=== PATIENT | female | born 1990 | race Hispanic/Latino ===

== ENCOUNTER 2021-09-01 16:55 | Emergency (ER) | payer MEDICAID ==
[~2021-09-01] VITALS: Ht 152.4 cm; Wt 59.0 kg
[~2021-09-01 16:55] MED LIST: ACET-2247 PO; IBUP-2070 PO; IRON-6 PO; PREN1TAB80 PO
[2021-09-01 16:58] VITALS: BP 123/75
[2021-09-01 17:56] LABS: BASOPHILS % (AUTO) 0.3 % (0.0-5.0); EOSINOPHILS % (AUTO) 0.8 % (0.0-8.0); HEMATOCRIT 36.5 % (36-48); LYMPHOCYTES % (AUTO) 14.9 % (21.0-51.0); MEAN CORPUSCULAR HEMOGLOBIN 24.9 pg (27.0-33.0); MEAN CORPUSCULAR HGB CONC 31.8 g/dL (32.0-36.0); MEAN CORPUSCULAR VOLUME 78.3 fL (79-99); MONOCYTES % (AUTO) 5.4 % (3.0-13.0); NEUTROPHILS % (AUTO) 78.1 % (40.0-77.0); PLATELET COUNT (AUTO) 241 K/uL (130-400); RED BLOOD CELL COUNT(AUTO) 4.66 MIL/uL (4.00-5.50); RED CELL DISTRIBUTION WIDTH 14.6 % (11.0-15.5); WHITE BLOOD COUNT (AUTO) 7.8 K/uL (4.8-10.8)
[2021-09-01 17:57] LABS: APPEARANCE,URINE Clear (CLEAR); BILIRUBIN,URINE Negative (NEGATIVE); COLOR,URINE Yellow (YELLOW); GLUCOSE, URINE (UA) Negative (NEGATIVE); KETONES,URINE Negative (NEGATIVE); LEUKOCYTE ESTERASE ,URINE Trace (NEGATIVE); NITRATE,URINE Negative (NEGATIVE); OCCULT BLOOD,URINE Negative (NEGATIVE); PROTEIN,URINE Negative (NEGATIVE); UROBILINOGEN,URINE 0.2 mg/dL (0.2-1.0)
[2021-09-01 18:03] LABS: HCG,QUAL RESULT POSITIVE (NEGATIVE)
[2021-09-01 18:05] LABS: BACTERIA,URINE Few /HPF (None Seen); RBC,URINE 0-1 /HPF (0-1); SQUAMOUS EPITHELIAL CELL,UR Few /HPF (0-2)
[2021-09-01 18:07] LABS: CREATININE 0.5 mg/dL (0.5-1.5); POTASSIUM 3.5 mmol/L (3.5-5.1)
[2021-09-01 18:12] LABS: ALBUMIN 3.5 g/dL (3.5-5.0); BILIRUBIN,TOTAL 0.1 mg/dL (0.2-1.0); TOTAL PROTEIN, SERUM 7.9 g/dL (6.0-8.3)
[2021-09-01] MEDS ORDERED: CEPH500B PO (19:57)
== END 2021-09-01 20:05 | disposition home or self-care (01) ==
LOC: EDH 16:55
DX: O20.0 Threatened abortion (principal); O23.42 Unspecified infection of urinary tract in pregnancy, second trimester; Z3A.19 19 weeks gestation of pregnancy; Z79.1 Long term (current) use of non-steroidal anti-inflammatories (NSAID)
CPT/HCPCS: 36415; 76805; 80053; 81001; 81025; 84702; 85025; 87088

== ENCOUNTER 2021-11-12 19:15 | Observation (INO) | payer MEDICAID ==
[~2021-11-12] VITALS: Ht 157.5 cm; Wt 67.6 kg
[~2021-11-12 19:15] MED LIST changes: +CEPH500B PO
[2021-11-12 19:19] VITALS: BP 114/58
[2021-11-12 19:46] LABS: APPEARANCE,URINE Cloudy (CLEAR); BILIRUBIN,URINE Negative (NEGATIVE); COLOR,URINE Yellow (YELLOW); GLUCOSE, URINE (UA) Negative (NEGATIVE); KETONES,URINE Negative (NEGATIVE); LEUKOCYTE ESTERASE ,URINE Large (NEGATIVE); NITRATE,URINE Negative (NEGATIVE); OCCULT BLOOD,URINE Negative (NEGATIVE); PH,URINE 7.5 (5.0-8.0); PROTEIN,URINE Negative (NEGATIVE); UROBILINOGEN,URINE 0.2 mg/dL (0.2-1.0)
[2021-11-12 20:15] LABS: BACTERIA,URINE Moderate /HPF (None Seen); MUCUS,URINE Few LPF (None Seen); SQUAMOUS EPITHELIAL CELL,UR Moderate /HPF (0-2)
[2021-11-12] MEDS ORDERED: LACTATED RINGERS 1000ML IV PRN (20:30)
[2021-11-12 20:37] LABS: AMPHET/METH SCREEN,URINE NEGATIVE (NEGATIVE); BARBITURATE SCREEN, URINE NEGATIVE (NEGATIVE); BENZODIAZEPINES SCREEN,URINE NEGATIVE (NEGATIVE); CANNABINOID SCREEN,URINE NEGATIVE (NEGATIVE); COCAINE SCREEN,URINE NEGATIVE (NEGATIVE); OPIATE SCREEN,URINE NEGATIVE (NEGATIVE); PHENCYCLIDINE SCREEN,URINE NEGATIVE (NEGATIVE)
== END 2021-11-12 22:15 | disposition home or self-care (01) ==
LOC: EDH 19:15 → LDH 19:16
PROVIDERS: ADMIT Obstetrics & Gynecology; ATTEND Obstetrics & Gynecology
DX: O26.893 Other specified pregnancy related conditions, third trimester (principal); R10.2 Pelvic and perineal pain; R60.0 Localized edema; O99.891 Other specified diseases and conditions complicating pregnancy; M54.50 Low back pain, unspecified; O34.63 Maternal care for abnormality of vagina, third trimester; N89.8 Other specified noninflammatory disorders of vagina; Z3A.30 30 weeks gestation of pregnancy
CPT/HCPCS: 80305; 81001; 87088; 96360; G0378 ×3; G0379

== ENCOUNTER 2021-11-29 00:51 | Observation (INO) | payer MEDICAID ==
[~2021-11-29] VITALS: Ht 157.5 cm; Wt 68.0 kg
[2021-11-29] MEDS ORDERED: LACTATED RINGERS 1000ML IV PRN (01:30)
[2021-11-29 01:33] LABS: APPEARANCE,URINE CLEAR (CLEAR); BILIRUBIN,URINE NEGATIVE (NEGATIVE); COLOR,URINE YELLOW (YELLOW); GLUCOSE, URINE (UA) NEGATIVE (NEGATIVE); KETONES,URINE NEGATIVE (NEGATIVE); LEUKOCYTE ESTERASE ,URINE TRACE (NEGATIVE); NITRATE,URINE NEGATIVE (NEGATIVE); OCCULT BLOOD,URINE NEGATIVE (NEGATIVE); PROTEIN,URINE NEGATIVE (NEGATIVE); UROBILINOGEN,URINE 0.2 mg/dL (0.2-1.0)
[2021-11-29 01:40] LABS: BACTERIA,URINE None Seen /HPF (None Seen); RBC,URINE None Seen /HPF (0-1); SQUAMOUS EPITHELIAL CELL,UR Moderate /HPF (0-2); WBC,URINE 0-1 /HPF (0-1)
[2021-11-29 01:41] LABS: AMPHET/METH SCREEN,URINE NEGATIVE (NEGATIVE); BARBITURATE SCREEN, URINE NEGATIVE (NEGATIVE); BENZODIAZEPINES SCREEN,URINE NEGATIVE (NEGATIVE); CANNABINOID SCREEN,URINE NEGATIVE (NEGATIVE); COCAINE SCREEN,URINE NEGATIVE (NEGATIVE); OPIATE SCREEN,URINE NEGATIVE (NEGATIVE); PHENCYCLIDINE SCREEN,URINE NEGATIVE (NEGATIVE)
[2021-11-29] MEDS ORDERED: LACTATED RINGERS 1000ML 1,000 ML IV SCH (03:00)
[2021-11-29] MEDS ORDERED: TERBUTALINE SULFATE PO SCH (03:00)
[2021-11-29] MEDS ORDERED: PROMETHAZINE HCL 25 MG/ML 1ML AMPULE IM ONE (03:00)
[2021-11-29] MEDS: TERBUTALINE SULFATE VIAL 1MG/ML SQ SCH ×2 (03:06→03:30)
[2021-11-29 03:09] VITALS: BP 107/62
== END 2021-11-29 04:55 | disposition home or self-care (01) ==
LOC: EDH 00:51 → LDH 00:52
PROVIDERS: ADMIT Obstetrics & Gynecology; ATTEND Obstetrics & Gynecology
DX: O60.03 Preterm labor without delivery, third trimester (principal); O26.893 Other specified pregnancy related conditions, third trimester; R51.9 Headache, unspecified; O21.2 Late vomiting of pregnancy; Z3A.32 32 weeks gestation of pregnancy
CPT/HCPCS: 80305; 81001; 96360; 96361; 96372; G0378 ×4; G0379; J2550; J3105; J7120

== ENCOUNTER 2022-01-12 20:26 | Observation (INO) | payer MEDICAID ==
[2022-01-12 20:29] VITALS: BP 121/76
[2022-01-12 21:07] LABS: APPEARANCE,URINE SL CLOUDY (CLEAR); BILIRUBIN,URINE NEGATIVE (NEGATIVE); COLOR,URINE YELLOW (YELLOW); GLUCOSE, URINE (UA) NEGATIVE (NEGATIVE); KETONES,URINE NEGATIVE (NEGATIVE); LEUKOCYTE ESTERASE ,URINE SMALL (NEGATIVE); NITRATE,URINE NEGATIVE (NEGATIVE); OCCULT BLOOD,URINE NEGATIVE (NEGATIVE); PH,URINE 5.5 (5.0-8.0); PROTEIN,URINE NEGATIVE (NEGATIVE); UROBILINOGEN,URINE 0.2 mg/dL (0.2-1.0)
[2022-01-12 21:35] LABS: BACTERIA,URINE Few /HPF (None Seen); MUCUS,URINE Few LPF (None Seen); SQUAMOUS EPITHELIAL CELL,UR Moderate /HPF (0-2)
[2022-01-14] MEDS ORDERED: PREN1TAB26 PO (22:25)
[2022-01-14] MEDS ORDERED: FERR-82 PO (22:25)
[2022-01-16] MEDS ORDERED: DOCU-116 PO (11:04)
[2022-01-16] MEDS ORDERED: IBUP-2077 PO (11:04)
== END 2022-01-12 22:20 | disposition home or self-care (01) ==
LOC: EDH 20:26 → LDH 20:27
PROVIDERS: ADMIT Obstetrics & Gynecology; ATTEND Obstetrics & Gynecology
DX: O26.893 Other specified pregnancy related conditions, third trimester (principal); R10.9 Unspecified abdominal pain; O99.891 Other specified diseases and conditions complicating pregnancy; M54.9 Dorsalgia, unspecified; Z3A.38 38 weeks gestation of pregnancy
CPT/HCPCS: 81001; G0378 ×2; G0379

== ENCOUNTER 2022-01-31 15:58 | Emergency (ER) | payer MEDICAID ==
[~2022-01-31] VITALS: Ht 157.5 cm; Wt 62.8 kg
[~2022-01-31 15:58] MED LIST changes: -ACET-2247 PO; -CEPH500B PO; +DOCU-116 PO; +FERR-82 PO; -IBUP-2070 PO; +IBUP-2077 PO; -IRON-6 PO; +PREN1TAB26 PO; -PREN1TAB80 PO
[2022-01-31 16:24] LABS: HEMATOCRIT 35.4 % (36-48); MEAN CORPUSCULAR HEMOGLOBIN 23.8 pg (27.0-33.0); MEAN CORPUSCULAR HGB CONC 31.4 g/dL (32.0-36.0); MEAN CORPUSCULAR VOLUME 75.8 fL (79-99); PLATELET COUNT (AUTO) 213 K/uL (130-400); RED BLOOD CELL COUNT(AUTO) 4.67 MIL/uL (4.00-5.50); RED CELL DISTRIBUTION WIDTH 18.6 % (11.0-15.5); WHITE BLOOD COUNT (AUTO) 8.2 K/uL (4.8-10.8)
[2022-01-31] MEDS: KETOROLAC 30MG VIAL (30MG/ML) IVP ONE (16:34)
[2022-01-31] MEDS: 0.9%NACL 1000ML 2,000 ML IV ONE (16:34)
[2022-01-31] MEDS: ACETAMINOPHEN 325 MG TAB PO ONE (16:35)
[2022-01-31 16:41] LABS: CREATININE 0.7 mg/dL (0.5-1.5); POTASSIUM 3.3 mmol/L (3.5-5.1)
[2022-01-31 16:41] LABS: APPEARANCE,URINE SL CLOUDY (CLEAR); BILIRUBIN,URINE SMALL (NEGATIVE); COLOR,URINE YELLOW (YELLOW); GLUCOSE, URINE (UA) NEGATIVE (NEGATIVE); KETONES,URINE 5 mg/dL (NEGATIVE); LEUKOCYTE ESTERASE ,URINE LARGE (NEGATIVE); NITRATE,URINE NEGATIVE (NEGATIVE); OCCULT BLOOD,URINE LARGE (NEGATIVE); PROTEIN,URINE 100 mg/dL (NEGATIVE); UROBILINOGEN,URINE 0.2 mg/dL (0.2-1.0)
[2022-01-31 16:45] LABS: ALBUMIN 3.4 g/dL (3.5-5.0); TOTAL PROTEIN, SERUM 7.7 g/dL (6.0-8.3)
[2022-01-31 16:56] LABS: BACTERIA,URINE Few /HPF (None Seen); MUCUS,URINE Few LPF (None Seen); SQUAMOUS EPITHELIAL CELL,UR Few /HPF (0-2); WBC,URINE 26-50 /HPF (0-1)
[2022-01-31] MEDS: CEFTRIAXONE 1G VIAL IVP ONE (17:18)
[2022-01-31 17:51] VITALS: BP 105/64
[2022-01-31] MEDS ORDERED: CEPH500B PO (18:04)
== END 2022-01-31 18:43 | disposition home or self-care (01) ==
LOC: EDH 15:58
DX: N10 Acute pyelonephritis (principal); E86.9 Volume depletion, unspecified; Z20.822 Contact with and (suspected) exposure to COVID-19; Z79.1 Long term (current) use of non-steroidal anti-inflammatories (NSAID)
CPT/HCPCS: 99284; 74176; 96374; 96361; 87635; 96375; 80053; 85027; 87040 ×2; 87077 ×2; 87088; 87186 ×2; 87804 ×2; 83605; 81001; 36415; C9803; J7030; J0696; J1885

== ENCOUNTER 2022-11-14 08:39 | Emergency (ER) | payer MEDICAID ==
[~2022-11-14] VITALS: Ht 157.5 cm; Wt 59.0 kg
[~2022-11-14 08:39] MED LIST changes: +CEPH500B PO
[2022-11-14 10:07] LABS: APPEARANCE,URINE CLEAR (CLEAR); BILIRUBIN,URINE NEGATIVE (NEGATIVE); COLOR,URINE YELLOW (YELLOW); GLUCOSE, URINE (UA) NEGATIVE (NEGATIVE); KETONES,URINE NEGATIVE (NEGATIVE); LEUKOCYTE ESTERASE ,URINE NEGATIVE Leu/uL (NEGATIVE); NITRATE,URINE NEGATIVE (NEGATIVE); PH,URINE 5.5 (5.0-8.0); PROTEIN,URINE 30 mg/dL (NEGATIVE); UROBILINOGEN,URINE 0.2 mg/dL (0.2-1.0)
[2022-11-14 10:08] LABS: HCG,QUALITATIVE URINE NEGATIVE (NEGATIVE)
[2022-11-14 10:46] LABS: MUCUS,URINE FEW LPF (None Seen); SQUAMOUS EPITHELIAL CELL,UR RARE /HPF (0-2)
[2022-11-14] MEDS ORDERED: 0.9%NACL 1000ML 1,000 ML IV ONE (11:30)
[2022-11-14] MEDS ORDERED: MORPHINE 4 MG SYG IVP ONE (11:30)
[2022-11-14] MEDS ORDERED: ONDANSETRON 4MG INJ IVP ONE (11:30)
[2022-11-14 12:05] LABS: BASOPHILS % (AUTO) 0.2 % (0.0-5.0); EOSINOPHILS % (AUTO) 0.1 % (0.0-8.0); HEMATOCRIT 41.1 % (36-48); LYMPHOCYTES % (AUTO) 4.2 % (21.0-51.0); MEAN CORPUSCULAR HEMOGLOBIN 25.9 pg (27.0-33.0); MEAN CORPUSCULAR HGB CONC 32.4 g/dL (32.0-36.0); MONOCYTES % (AUTO) 4.2 % (3.0-13.0); NEUTROPHILS % (AUTO) 91.1 % (40.0-77.0); PLATELET COUNT (AUTO) 206 K/uL (130-400); RED BLOOD CELL COUNT(AUTO) 5.14 MIL/uL (4.00-5.50); RED CELL DISTRIBUTION WIDTH 14.4 % (11.0-15.5); WHITE BLOOD COUNT (AUTO) 12.4 K/uL (4.8-10.8)
[2022-11-14 12:15] LABS: CREATININE 0.5 mg/dL (0.5-1.5); POTASSIUM 4.4 mmol/L (3.5-5.1)
[2022-11-14 12:21] LABS: ALBUMIN 4.4 g/dL (3.5-5.0); TOTAL PROTEIN, SERUM 8.3 g/dL (6.0-8.3)
[2022-11-14] MEDS ORDERED: IBUP-2077 PO (14:38)
[2022-11-14 15:45] VITALS: BP 132/74
[2022-11-14] MEDS ORDERED: LACTATED RINGERS 1000ML 1,000 ML IV SCH (19:30)
== END 2022-11-14 15:48 | disposition home or self-care (01) ==
LOC: EDH 08:39
DX: N83.201 Unspecified ovarian cyst, right side (principal); R10.2 Pelvic and perineal pain; Z20.822 Contact with and (suspected) exposure to COVID-19; Z79.899 Other long term (current) drug therapy; Z98.890 Other specified postprocedural states
CPT/HCPCS: 99285; 74176; 96374; 87635; 96361; 96375; 80053; 83690; 85025; 87880; 87804 ×2; 81001; 81025; 36415; C9803; J7120; J2405; J2270

== ENCOUNTER 2024-10-27 22:42 | Emergency (ER) | payer BC, MEDICAID ==
[~2024-10-27] VITALS: Ht 157.5 cm; Wt 61.2 kg
--- NOTE | 2024-10-27 22:57 | ERN ---
ED Note History of Present Illness Stated Complaint: RASH, ITCHING Chief Complaint: Allergic Reaction Time Seen by MD: 22:46 Time Seen by Midlevel: 22:50 Dictation: Ms. Ambriz is a 34-year-old female with no reported chronic health issues who presented to the emergency department this evening for evaluation of rash. She states that 24 hours ago she developed a rash with hives to extremities, trunk, neck, and scalp. She reports intense itching. She states it is something that happened three years ago but had responded at that time to Benadryl. She states she took Benadryl twice today and symptoms persist. She denies having fever, chills, shortness of breath, cough, chest pain, palpitations, edema, abdominal pain, nausea, vomiting, diarrhea, dysuria, headache, or dizziness. Voice is clear. No airway involvement. Allergies: Coded Allergies: No Known Allergies (Unverified Allergy, Unknown, 09/26/14) Home Meds Active Scripts Ibuprofen (Ibuprofen 800 mg Tab) 800 Mg Tab, 800 MG PO Q6H PRN for PAIN for 10 Days, #40 TAB Prov:PATIENCE PETER 11/14/22 Cephalexin Monohydrate (Keflex) 500 Mg Cap, 500 MG PO TID for 7 Days, #21 CAP 0 Refills Prov:ANGE STEIN MD 01/31/22 Reported Medications Ibuprofen (Ibuprofen 800 mg Tab) 800 Mg Tab, 800 MG PO Q8H PRN for PAIN, #60 TAB 01/16/22 Docusate Sodium (Colace) 100 Mg Capsule, 100 MG PO BID, #60 CAP 01/16/22 Ferrous Sulfate (Iron) 325 Mg Tablet, 325 MG PO DAILY, TAB 01/14/22 Vit/Iron Fumarate/FA ( Vitamins Tablet) 1 Each Tablet, 1 EACH PO DAILY, TAB 01/14/22 Past Medical History Past Medical History: No Pertinent History Surgical History: Other Surgical History Other: HERNIA Social History: Other : 2 Para: 2 Aborts: 0 RN Note Reviewed/Agreed w/PFSH: Yes Review of System Dictation REVIEW OF SYSTEMS: CONSTITUTIONAL: Patient denies fevers, chills, sweats and weight changes. EYES: Patient denies any visual symptoms. EARS, NOSE, AND THROAT: No difficulties with hearing. No symptoms of rhinitis or sore throat. CARDIOVASCULAR: Patient denies chest pains, palpitations, orthopnea and paroxysmal nocturnal dyspnea. RESPIRATORY: No dyspnea on exertion, no wheezing or cough. GI: No nausea, vomiting, diarrhea, constipation, abdominal pain, hematochezia or melena. : No urinary hesitancy or dribbling. No nocturia or urinary frequency. No abnormal urethral discharge. MUSCULOSKELETAL: No myalgias or arthralgias. NEUROLOGIC: No chronic headaches, no seizures. Patient denies numbness, tingling or weakness. PSYCHIATRIC: Patient denies problems with mood disturbance. No problems with anxiety. ENDOCRINE: No excessive urination or excessive thirst. DERMATOLOGIC: Reports intense itching with rash/hives onset 24 hours ago. Initial Vital Sign VS Vital Signs Date Time Temp Pulse Resp B/P (MAP) Pulse Ox O2 Delivery O2 Flow Rate FiO2 10/27/24 22:43 99.3 114 20 123/82 100 Room Air 10/27/24 22:54 0 21 Physical Exam Dictation Vital signs: Reviewed. Afebrile Constitutional: No acute distress. Non-toxic appearing. Head/Face: Normocephalic, atraumatic. No angioedema Eyes: Periorbital areas with no swelling, redness, or edema. Lids and lashes are normal. Conjunctival injection is absent. Sclera anicteric. Pupils equal, round, reactive to light. ENT: Pinnas intact and no signs of trauma or erythema. Ear canals clear and no discharge. TMs no erythema. No nasal discharge or bleeding noted. Oropharynx with no exudate, redness, swelling, masses, exudates, or evidence of obstruction. Uvula midline. Mucous membranes moist. There is no angioedema of the lips, tongue, or airway noted. Voice is clear. Neck: Trachea midline, no masses palpated, and no cervical lymphadenopathy. No swelling. Supple, full range of motion. Chest/Axilla: No tenderness, no crepitus, no paradoxical movement, no retractions. Cardiovascular: Regular rate, regular rhythm, no murmur, no gallops. Symmetric pulses. No peripheral edema. Respiratory: Respirations even and unlabored. Lung sounds clear; no wheezes, rales or rhonchi. Room air SpO2 98-100% Gastrointestinal: Inspection is normal. No distention is appreciated. Bowel s ounds are normal. No mass or organomegaly . There is no tenderness. No rebound. No rigidity. No voluntary or involuntary guarding. No White's sign. Neurological: Normal speech, gross motor function intact, gross sensory function intact. No focal weakness/Paresthesia. Musculoskeletal/Extremities: All extremities have full range of motion, no pain or tenderness on palpation. Symmetric pulses. Integumentary: Intact. Skin is normal color, warm and dry. Cap refill less than 2 seconds. Multiple raised, erythematous, well demarcated wheals on the trunk and extremities she has consistent with urticaria (hives). Lesions are blanchable and transient with no associated bruising, scaling or signs of infection. ED Course ED Course Orders Procedure Category Date Status Time Famotidine 20mg Tab PHA 10/27/24 Complete (Pepcid 20mg Tab) 23:00 Loratadine 10 Mg PHA 10/27/24 Complete (Loratadine 10 Mg) 23:00 Prednisone 20mg Tab PHA 10/27/24 Complete (Deltasone/Orasone 2 23:00 Current Medications Medications (Trade) Dose Ordered Sig/Helder Route PRN Reason Start Time Stop Time Status Last Admin Dose Admin Famotidine (Pepcid 20mg Tab) 20 mg ONCE ONCE PO 10/27/24 23:00 10/27/24 23:01 DC 10/27/24 23:07 Loratadine (LORATAdine 10 mg) 10 mg ONCE ONCE PO 10/27/24 23:00 10/27/24 23:01 DC 10/27/24 23:07 Prednisone (deltaSONE/ oraSONE 20MG TAB) 40 mg ONCE ONCE PO 10/27/24 23:00 10/27/24 23:01 DC 10/27/24 23:07 Vital Signs Date Time Temp Pulse Resp B/P (MAP) Pulse Ox O2 Delivery O2 Flow Rate FiO2 10/27/24 22:54 99.0 108 19 107/63 100 Room Air* 0 21 10/27/24 22:43 99.3 114 20 123/82 100 Room Air Uneventful ED course. Vital signs stable; afebrile and normotensive with room air SpO2 100%. No angioedema. No airway involvement. Urticaria rash to body. She received doses prednisone, loratadine, and Pepcid. Symptoms resolving somewhat. Findings were discussed with patient and all questions were answered. Medical Decision Making MDM MDM: Differential diagnosis: Urticaria, anaphylaxis, cellulitis Rationale: Tests considered and ordered secondary to shared decision making include: Examination Previous outside records reviewed: Old ER visits. Risk of complication and/or morbidity or mortality of patient management: None Medications-Per medication reconciliation Need for hospitalization: Patient does not meet criteria for hospitalization. Need for emergency major/minor surgery: No There are no social concerns with this patient. Prescription drug management: Pepcid, prednisone, loratadine Prescriptions will include symptomatic care Patient's prior external medical records from other ER visits were reviewed by me as indicated. Prior testing and results from previous visits were reviewed. Prior tests were taken into account with medical decision making and resource utilization, independent historian/historians were used to obtain complete medical history. I independently interpreted the test that were performed, results were reviewed by me and considered findings on radiology if ordered. Medical management and examination interpretation discussions were had by me with other qualified healthcare professionals as indicated for the patient's care. DX & DISP Disposition: Discharge Departure Impression: Primary Impression: Urticaria Condition: Stable Scripts Famotidine (Famotidine) 20 Mg Tablet 1 TAB PO BID for 7 Days, #14 TAB 0 Refills Prov: PAULINE AC NP 10/27/24 Prednisone (Prednisone) 5 Mg Tablet 40 MG PO DAILY, #3 TAB 0 Refills Prov: PAULINE AC NP 10/27/24 Loratadine (Loratadine) 10 Mg Tablet 10 MG PO DAILY, #12 TAB 0 Refills Prov: PAULINE AC NP 10/27/24 Additional Instructions: Continue Pepcid, famotidine, and prednisone as directed. Avoid hot showers, tight clothing or known allergy triggers. Apply cool compresses or take a lukewarm oatmeal baths for itching. Do not take any new medications, vitamins, or food without 1st consulting your doctor. Follow up with your PCP in the next week. Should symptoms persist you may benefit from referral to development specialist. Return to the emergency department for any concerning symptoms such as trouble breathing, wheezing, or chest tightness. Swelling of lips, tongue or throat, dizziness or fainting. Or rash of against painful, bruising, or blistered. Referrals: NONE (PCP) Time of Disposition: 23:44 PAULINE AC NP October 27, 2024 22:57
[2024-10-27] MEDS: FAMOTIDINE 20MG TAB PO ONE (23:07)
[2024-10-27] MEDS: predniSONE 20 MG TABLET PO ONE (23:07)
[2024-10-27] MEDS: LORATAdine 10 mg 10 MG TABLET PO ONE (23:07)
[2024-10-27] MEDS ORDERED: PRED5TAB PO (23:42)
[2024-10-27] MEDS ORDERED: LORA10TA7 PO (23:42)
[2024-10-27] MEDS ORDERED: FAMO20TA8 PO (23:42)
[2024-10-27 23:49] VITALS: BP 116/76; PULSE 95; RESP 18; TEMP 98.4; O2SAT 100
== END 2024-10-28 00:13 | disposition home or self-care (01) ==
LOC: EDH 22:42
DX: L50.9 Urticaria, unspecified (principal)
CPT/HCPCS: 99283